=== PATIENT | female | born 1930 | race American Indian/Alaskan Native ===

== ENCOUNTER 2020-09-07 22:12 | Inpatient (IN) | payer MEDICARE, OTHER ==
[2020-09-07 23:35] LABS: Albumin 4.2 g/dL (3.9-5); Calcium 10.6 mg/dL (8.4-10.2)
[2020-09-08 01:36] LABS: Basophils % (Auto) 0.6 % (0.0-1.8); Lymphocytes # (Auto) 1.1 K/mm3 (1.2-5.4); Mean Corpuscular HGB Conc 31 % (30-34); Mean Corpuscular Volume 77 fl (79-97); Monocytes # (Auto) 0.4 K/mm3 (0.0-0.8); Monocytes % (Auto) 11.5 % (0.0-7.3); Platelet Count 150 K/mm3 (140-440); Red Blood Count 5.48 M/mm3 (3.65-5.03); Red Cell Distribution Width 14.7 % (13.2-15.2)
[2020-09-08 01:43] LABS: Hematocrit 42.2 % (30.3-42.9); Hemoglobin 13.1 gm/dl (10.1-14.3)
--- NOTE | 2020-09-08 02:19 | Emergency Department Report ---
HPI - General Chief Complaint: Hyperglycemia Time Seen by Provider: 09/08/20 02:08 - [facility] HPI: Room 2 The patient is an 89-year-old female present with a chief complaint of hyperglycemia. Patient was brought in by son for hyperglycemia. The son states the glucometer at home read "high" and the patient complained of feeling tired. Patient states she had episodes of nausea vomiting for 1 day. Patient denies history of fever dysuria or hematuria but admits to urinary frequency. Patient states she has been compliant with her diabetes medication. ED Past Medical Hx - Past Medical History Previous Medical History?: Yes Hx Congestive Heart Failure: Yes Hx Diabetes: Yes - Surgical History Past Surgical History?: Yes Additional Surgical History: Cardiac stent - Family History Family history: no significant - Social History Smoking Status: Never Smoker Substance Use Type: None ED Review of Systems ROS: Stated complaint: WEAKNESS Other details as noted in HPI Constitutional: denies: fever Eyes: denies: eye pain ENT: denies: throat pain Respiratory: no symptoms reported Cardiovascular: denies: chest pain Endocrine: increased urine Gastrointestinal: nausea, vomiting. denies: abdominal pain Genitourinary: frequency. denies: dysuria, hematuria Musculoskeletal: denies: back pain Neurological: denies: headache Physical Exam - Physical Exam Vital Signs: Vital Signs 09/07/20 09/07/20 22:15 22:17 Temperature 97.5 F L Pulse Rate 78 Respiratory 18 Rate Blood Pressure 185/62 O2 Sat by Pulse 95 Oximetry Physical Exam: GENERAL: The patient is well-developed well-nourished female lying on stretcher not appearing to be in acute distress. [] HEENT: Normocephalic. Atraumatic. Extraocular motions are intact. NECK: Supple. Trachea midline CHEST/LUNGS: Clear to auscultation. There is no respiratory distress noted. HEART/CARDIOVASCULAR: Regular. There is no tachycardia. There is no gallop rub or murmur. ABDOMEN: Abdomen is soft, nontender. Patient has normal bowel sounds. There is no abdominal distention. SKIN: There is no rash. There is no edema. There is no diaphoresis. NEURO: The patient is awake, alert, and oriented. The patient is cooperative. The patient has no focal neurologic deficits. The patient has normal speech MUSCULOSKELETAL: There is no evidence of acute injury. ED Course Vital Signs 09/07/20 09/07/20 22:15 22:17 Temperature 97.5 F L Pulse Rate 78 Respiratory 18 Rate Blood Pressure 185/62 O2 Sat by Pulse 95 Oximetry ED Medical Decision Making - Lab Data Result diagrams: 09/08/20 00:58 09/07/20 22:43 Laboratory Tests 09/07/20 09/08/20 09/08/20 22:43 00:58 00:58 WBC RBC Hgb Hct MCV MCH MCHC RDW Plt Count Lymph % (Auto) [place] % (Auto) Eos % (Auto) Baso % (Auto) Lymph # (Auto) [place] # (Auto) Eos # (Auto) Baso # (Auto) Seg Neutrophils % Seg Neutrophils # VBG pH 7.313 L Sodium 136 L Potassium 4.5 Chloride 90.6 L Carbon Dioxide 27 Anion Gap 23 BUN 38 H Creatinine 2.2 H Estimated GFR 21 BUN/Creatinine Ratio 17 Glucose 713 H* Ketones Quantitative Small Calcium 10.6 H Total Bilirubin 0.40 AST 15 ALT 16 Alkaline Phosphatase 85 Total Protein 8.0 Albumin 4.2 Albumin/Globulin Ratio 1.1 09/08/20 00:58 WBC 3.5 L RBC 5.48 H Hgb 13.1 Hct 42.2 MCV 77 L MCH 24 L MCHC 31 RDW 14.7 Plt Count 150 Lymph % (Auto) 32.0 [place] % (Auto) 11.5 H Eos % (Auto) 1.0 Baso % (Auto) 0.6 Lymph # (Auto) 1.1 L [place] # (Auto) 0.4 Eos # (Auto) 0.0 Baso # (Auto) 0.0 Seg Neutrophils % 54.9 Seg Neutrophils # 1.9 VBG pH Sodium Potassium Chloride Carbon Dioxide Anion Gap BUN Creatinine Estimated GFR BUN/Creatinine Ratio Glucose Ketones Quantitative Calcium Total Bilirubin AST ALT Alkaline Phosphatase Total Protein Albumin Albumin/Globulin Ratio - Differential Diagnosis DKA, hyperglycemia Critical care attestation.: If time is entered above; I have spent that time in minutes in the direct care of this critically ill patient, excluding procedure time. ED Disposition Clinical Impression: DKA (diabetic ketoacidoses), Renal insufficiency Disposition: OP ADMIT IP TO THIS HOSP Is pt being admited?: Yes Does the pt Need Aspirin: No Condition: Fair Instructions: Diabetic Ketoacidosis (ED) Referrals: PRIMARY CARE, [Primary Care Provider] - 3-5 Days Time of Disposition: 02:45 (Hospitalist paged (Dr Garcia))
[2020-09-08] MEDS ORDERED: INSULIN REGULAR, HUMAN 100 UNITS in SODIUM CHLORIDE 0.9% 99 ML IV SCH ×2 (03:00→04:00)
[2020-09-08] MEDS ORDERED: MORPHINE 2 MG/1 ML INJ IV PRN (03:11)
[2020-09-08] MEDS ORDERED: SODIUM CHLORIDE 0.9% 1000 ML 1,000 ML IV ONE (03:17)
--- NOTE | 2020-09-08 03:29 | History and Physical Report ---
History of Present Illness Date of examination: 09/08/20 Date of admission: 09/08/2020 Chief complaint: Elevated Blood Glucose History of present illness: 89-year-old -[place] female with known history of congestive heart failure, and diabetes mellitus presenting in the emergency room today accompanied by son with complaint of elevated blood sugar. Coumadin was said to be reading high at home. Patient denies any fever or chills, no chest pain or shortness of breath, no headache or dizziness, no excessive thirst or increased frequency of urination no hematuria or dysuria. Patient has however had some episodes of nausea and vomiting. She denies any abdominal pain and no diarrhea. Patient indicates that she has been compliant with her medication. She denies any sick contacts and no recent travel. She denies any contact with anyone with COVID-19. Work-up in the emergency room reveals elevated blood glucose in the 700s. She was found to be in DKA and started on IV fluid and insulin drip. Past History Past Medical History: diabetes, heart failure Past Surgical History: No surgical history Social history: no significant social history Family history: no significant family history Medications and Allergies Allergies Allergy/AdvReac Type Severity Reaction Status Date / Time No Known Allergies Allergy Unverified 09/07/20 22:27 Active Meds: Active Medications Heparin Sodium (Porcine) (Heparin) 5,000 unit SUB-Q Q8HR SADI Insulin Human Regular 100 (units/ Sodium Chloride) 100 mls @ 5 mls/hr IV TITR SADI; Protocol Sodium Chloride (Nacl 0.9% 1000 Ml) 1,000 mls @ 999 mls/hr IV BOLUS ONE Stop: 09/08/20 04:17 Insulin Human Regular 100 (units/ Sodium Chloride) 100 mls @ 1 mls/hr IV TITR SADI; Protocol Sodium Chloride (Nacl 0.9% 1000 Ml) 1,000 mls @ 150 mls/hr IV DIRECT SADI Potassium Chloride/Dextrose/Sod Cl (D5w/0.45% Nacl/Kcl 20 Meq) 20 meq in 1,000 mls @ 125 mls/hr IV DIRECT SADI Morphine Sulfate (Morphine) 2 mg IV Q4H PRN PRN Reason: Pain, Moderate (4-6) Sodium Chloride (Sodium Chloride Flush Syringe 10 Ml) 10 ml IV BID SADI Sodium Chloride (Sodium Chloride Flush Syringe 10 Ml) 10 ml IV PRN PRN PRN Reason: LINE FLUSH Review of Systems Constitutional: no fever, no chills Ears, nose, mouth and throat: no nasal congestion, no sore throat Cardiovascular: no chest pain, no palpitations Respiratory: no cough, no shortness of breath Gastrointestinal: nausea, vomiting, no abdominal pain, no diarrhea Genitourinary Female: no flank pain, no dysuria, no hematuria Musculoskeletal: no neck pain, no low back pain Integumentary: rash, pruritis Neurological: no headaches, no confusion Psychiatric: no anxiety, no depression Endocrine: no polyphagia, no polydipsia, no polyuria, no excessive sweating Exam - Constitutional Vitals: Temp Pulse Resp BP Pulse Ox 97.5 F L 78 18 185/62 95 09/07/20 22:15 09/07/20 22:17 09/07/20 22:15 09/07/20 22:15 09/07/20 22:17 General appearance: Present: no acute distress, well-nourished - EENT Eyes: Present: PERRL, EOM intact. Absent: scleral icterus ENT: hearing intact, clear oral mucosa, dentition normal - Neck Neck: Present: supple, normal ROM - Respiratory Respiratory effort: normal Respiratory: bilateral: CTA - Cardiovascular Rhythm: regular Heart Sounds: Present: S1 & S2. Absent: gallop, systolic murmur, diastolic murmur, rub - Extremities Extremities: no ischemia, pulses intact, pulses symmetrical, Full ROM Extremity abnormal: edema (trace bilateral ankle edema) Peripheral Pulses: within normal limits - Abdominal General gastrointestinal: Present: soft, non-tender, non-distended, normal bowel sounds - Integumentary Integumentary: Present: clear, warm, dry - Musculoskeletal Musculoskeletal: strength equal bilaterally - Psychiatric Psychiatric: appropriate mood/affect, intact judgment & insight, memory intact, cooperative - Neurologic Neurologic: CNII-XII intact, no focal deficits, moves all extremities Results - Labs CBC & Chem 7: 09/08/20 00:58 09/08/20 02:59 Labs: Abnormal lab results 09/07/20 09/08/20 09/08/20 Range/Units 22:43 00:58 00:58 WBC 3.5 L (4.5-11.0) K/mm3 RBC 5.48 H (3.65-5.03) M/mm3 MCV 77 L (79-97) fl MCH 24 L (28-32) pg [place] % (Auto) 11.5 H (0.0-7.3) % Lymph # (Auto) 1.1 L (1.2-5.4) K/mm3 VBG pH 7.313 L (7.320-7.420) Sodium 136 L (137-145) mmol/L Chloride 90.6 L (98-107) mmol/L BUN 38 H (7-17) mg/dL Creatinine 2.2 H (0.6-1.2) mg/dL Glucose 713 H* (65-100) mg/dL Calcium 10.6 H (8.4-10.2) mg/dL Assessment and Plan - Patient Problems (1) DKA (diabetic ketoacidoses) Current Visit: Yes Status: Acute Plan to address problem: Patient started on IV fluid and insulin drip. We will monitor her blood glucose closely. (2) Renal insufficiency Current Visit: Yes Status: Acute Plan to address problem: Probably chronic. Will monitor BUN and creatinine. We will place consult to nephrology for further recommendation. (3) DVT prophylaxis Current Visit: Yes Status: Acute Plan to address problem: Patient placed on anticoagulation with subcutaneous heparin. (4) Full code status Current Visit: Yes Status: Acute
[2020-09-08 03:31] LABS: Calcium 10.5 mg/dL (8.4-10.2)
[2020-09-08] MEDS ORDERED: SODIUM CHLORIDE 0.9% 1000 ML 1,000 ML ONE ×2 (04:54→06:03)
[2020-09-08 05:05] LABS: Calcium 10.2 mg/dL (8.4-10.2)
[2020-09-08] MEDS ORDERED: HEPARIN 5,000 UNIT/1 ML VIAL ONE ×2 (06:03→13:56)
[2020-09-08] MEDS: HEPARIN 5,000 UNIT/1 ML VIAL SUB-Q SCH ×3 (06:05→21:59)
[2020-09-08] MEDS: SODIUM CHLORIDE 0.9% 1000 ML 1,000 ML IV SCH (06:06)
[2020-09-08 07:25] LABS: Calcium 9.6 mg/dL (8.4-10.2)
[2020-09-08] MEDS ORDERED: D5W/0.45% NACL/KCL 20 MEQ 20 MEQ/1,000 ML BAG IV ONE ×2 (08:02→16:01)
[2020-09-08] MEDS: D5W/0.45% NACL/KCL 20 MEQ 20 MEQ/1,000 ML BAG IV SCH ×2 (08:15→16:08)
[2020-09-08 09:46] LABS: Calcium 9.7 mg/dL (8.4-10.2)
[2020-09-08 11:03] LABS: Calcium 9.2 mg/dL (8.4-10.2)
--- NOTE | 2020-09-08 15:30 | Consultation ---
History of Present Illness - Reason for Consult Consult date: 09/08/20 acute renal failure, chronic renal failure Requesting physician: ELLA GUZMAN - History of Present Illness 89-year-old lady with a history of diabetes mellitus, congestive heart failure and chronic kidney disease stage not known to me. Patient lives in [place] and is visiting family here in [place]. She was brought to the emergency room because her blood sugar was high. Patient had been feeling tired. She had episodes of nausea and vomiting. She also admits to urinary frequency and comp zarina of pain in her right side. No diarrhea. No chest pain or shortness of breath. No fever or chills. On presentation blood sugar was 713 mg/dL and BUN/creatinine 38/2.2 mg/dL. I am consulted to assist managing the renal failure. Patient admits that she sees a lard maker in [place] where she lives but she does not know what stage of kidney disease she is at. 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 denies: smoking, alcohol abuse, prescription drug abuse, IV drug use Family history: cancer (Father had cancer. She did not sure of what her mother of) Medications and Allergies Allergies Allergy/AdvReac Type Severity Reaction Status Date / Time No Known Allergies Allergy Unverified 09/07/20 22:27 Home Medications Medication Instructions Recorded Confirmed Last Taken Type Apixaban [Eliquis] 5 mg PO BID 09/08/20 09/08/20 Unknown History Furosemide [Lasix TAB] 20 mg PO DAILY 09/08/20 09/08/20 Unknown History amLODIPine 5 mg PO DAILY 09/08/20 09/08/20 Unknown History labetaloL [Labetalol 100mg TAB] 100 mg PO BID 09/08/20 09/08/20 Unknown History Active Meds: Active Medications Heparin Sodium (Porcine) (Heparin) 5,000 unit SUB-Q Q8HR SADI Last Admin: 09/08/20 14:00 Dose: 5,000 unit Documented by: Insulin Human Regular 100 (units/ Sodium Chloride) 100 mls @ 1 mls/hr IV TITR SADI; Protocol Last Titration: 09/08/20 15:05 Dose: 1.5 units/hr, 1.5 mls/hr Documented by: Sodium Chloride (Nacl 0.9% 1000 Ml) 1,000 mls @ 150 mls/hr IV DIRECT SADI Last Infusion: 09/08/20 08:15 Dose: 0 mls/hr Documented by: Potassium Chloride/Dextrose/Sod Cl (D5w/0.45% Nacl/Kcl 20 Meq) 20 meq in 1,000 mls @ 125 mls/hr IV DIRECT SADI Last Admin: 09/08/20 08:15 Dose: 125 mls/hr Documented by: Morphine Sulfate (Morphine) 2 mg IV Q4H PRN PRN Reason: Pain, Moderate (4-6) Sodium Chloride (Sodium Chloride Flush Syringe 10 Ml) 10 ml IV BID SADI Last Admin: 09/08/20 08:00 Dose: 10 ml Documented by: Sodium Chloride (Sodium Chloride Flush Syringe 10 Ml) 10 ml IV PRN PRN PRN Reason: LINE FLUSH Review of Systems All systems: negative (Decreased appetite, urinary frequency as noted in history of present illness) Exam - Vital Signs Vital signs: Vital Signs Temp Resp BP 97.5 F L 18 185/62 09/07/20 22:15 09/07/20 22:15 09/07/20 22:15 - Physical Exam Narrative exam: Frail elderly -[place] female lying in bed in no acute distress HEENT: NCAT, pink oral mucous membrane Neck: Supple, no venous distention CVS: S1S2 RRR with no murmur, rub or gallop Chest: Clear to auscultation Abdomen: Protuberant, soft, nontender, no organomegaly, bowel sounds are present Extremities: No edema, hyperpigmentation in both legs with ischemic changes, decreased dorsalis pedis pulses bilaterally. Skin warm and dry with pigmentary and ischemic changes in both legs. Genitourinary deferred Neuro: Awake, alert no focal deficits Results - Lab Results 09/08/20 00:58 09/08/20 10:32 Most recent lab results Calcium 9.2 mg/dL (8.4-10.2) 09/08/20 10:32 Phosphorus 3.70 mg/dL (2.5-4.5) 09/08/20 02:59 Magnesium 2.80 mg/dL (1.7-2.3) H 09/08/20 02:59 Assessment and Plan - Patient Problems (1) Acute kidney injury Current Visit: Yes Status: Acute Plan to address problem: Acute kidney injury present probably prerenal still respond to volume depletion secondary to osmotic diuresis due to hyperglycemia. Continue volume repletion and follow-up kidney function and electrolytes (2) Type 2 diabetes mellitus with hyperosmolarity without nonketotic hyperglycemic-hyperosmolar coma Current Visit: Yes Status: Acute Plan to address problem: Hyperglycemic hyperosmolar nonketotic state. Blood sugar control by primary attending (3) Chronic kidney disease, unspecified Current Visit: Yes Status: Acute Plan to address problem: Chronic kidney disease presumably secondary to diabetic nephropathy. Baseline kidney function unknown. Request records from lard maker in [place] tomorrow (4) Heart failure of unknown type Current Visit: Yes Status: Acute Plan to address problem: Caution with volume repletion given history of heart failure. Monitor volume status closely
[2020-09-08] MEDS: INSULIN NPH, HUMAN 100 UNIT/1 ML SUB-Q SCH (16:42)
--- NOTE | 2020-09-08 16:54 | Consultation ---
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 denies: smoking, alcohol abuse, prescription drug abuse, IV drug use Family history: cancer (Father had cancer. She did not sure of what her mother of) Medications and Allergies Allergies Allergy/AdvReac Type Severity Reaction Status Date / Time No Known Allergies Allergy Unverified 09/07/20 22:27 Home Medications Medication Instructions Recorded Confirmed Last Taken Type Apixaban [Eliquis] 5 mg PO BID 09/08/20 09/08/20 Unknown History Furosemide [Lasix TAB] 20 mg PO DAILY 09/08/20 09/08/20 Unknown History amLODIPine 5 mg PO DAILY 09/08/20 09/08/20 Unknown History labetaloL [Labetalol 100mg TAB] 100 mg PO BID 09/08/20 09/08/20 Unknown History Active Meds: Active Medications Heparin Sodium (Porcine) (Heparin) 5,000 unit SUB-Q Q8HR SADI Last Admin: 09/08/20 14:00 Dose: 5,000 unit Documented by: Sodium Chloride (Nacl 0.9% 1000 Ml) 1,000 mls @ 150 mls/hr IV DIRECT SADI Last Infusion: 09/08/20 08:15 Dose: 0 mls/hr Documented by: Potassium Chloride/Sodium Chloride (Ns/Kcl 20meq) 20 meq in 1,000 mls @ 75 mls/hr IV DIRECT SADI Insulin Human NPH (Humulin N) 10 unit SUB-Q BIDDIAB SADI Last Admin: 09/08/20 16:42 Dose: Not Given Documented by: Insulin Human Regular (Humulin R) 0 unit SUB-Q ACHS SADI; Protocol Morphine Sulfate (Morphine) 2 mg IV Q4H PRN PRN Reason: Pain, Moderate (4-6) Sodium Chloride (Sodium Chloride Flush Syringe 10 Ml) 10 ml IV BID SADI Last Admin: 09/08/20 08:00 Dose: 10 ml Documented by: Sodium Chloride (Sodium Chloride Flush Syringe 10 Ml) 10 ml IV PRN PRN PRN Reason: LINE FLUSH Physical Examination Vital signs: Vital Signs Temp Resp BP 97.5 F L 18 185/62 09/07/20 22:15 09/07/20 22:15 09/07/20 22:15 Results - Laboratory Findings CBC and BMP: 09/08/20 00:58 09/09/20 05:50 Abnormal lab findings: Abnormal Labs 09/07/20 09/07/20 09/08/20 22:41 22:43 00:58 WBC RBC MCV MCH [place] % (Auto) Lymph # (Auto) VBG pH 7.313 L Sodium 136 L Potassium Chloride 90.6 L Carbon Dioxide BUN 38 H Creatinine 2.2 H Glucose 713 H* POC Glucose > 500 H Hemoglobin A1c Calcium 10.6 H Magnesium 09/08/20 09/08/20 09/08/20 00:58 02:59 02:59 WBC 3.5 L RBC 5.48 H MCV 77 L MCH 24 L [place] % (Auto) 11.5 H Lymph # (Auto) 1.1 L VBG pH Sodium 135 L Potassium Chloride 92.3 L Carbon Dioxide BUN 39 H Creatinine 2.0 H Glucose 638 H* POC Glucose Hemoglobin A1c Calcium 10.5 H Magnesium 2.80 H 09/08/20 09/08/20 09/08/20 04:21 04:21 06:25 WBC RBC MCV MCH [place] % (Auto) Lymph # (Auto) VBG pH Sodium 136 L Potassium Chloride 93.1 L Carbon Dioxide BUN 39 H Creatinine 1.9 H Glucose 596 H* POC Glucose 419 H Hemoglobin A1c 13.4 H Calcium Magnesium 09/08/20 09/08/20 09/08/20 06:50 08:12 08:52 WBC RBC MCV MCH [place] % (Auto) Lymph # (Auto) VBG pH Sodium Potassium 3.1 L D Chloride Carbon Dioxide 21 L D BUN 36 H 37 H Creatinine 1.7 H 1.9 H Glucose 289 H 267 H POC Glucose 233 H Hemoglobin A1c Calcium Magnesium 09/08/20 09/08/20 09/08/20 09:26 10:32 11:15 WBC RBC MCV MCH [place] % (Auto) Lymph # (Auto) VBG pH Sodium Potassium 3.3 L Chloride Carbon Dioxide 32 H D BUN 34 H Creatinine 1.9 H Glucose 238 H POC Glucose 302 H 269 H Hemoglobin A1c Calcium Magnesium 09/08/20 09/08/20 09/08/20 12:19 13:30 14:20 WBC RBC MCV MCH [place] % (Auto) Lymph # (Auto) VBG pH Sodium Potassium Chloride Carbon Dioxide BUN Creatinine Glucose POC Glucose 223 H 172 H 143 H Hemoglobin A1c Calcium Magnesium 09/08/20 15:20 WBC RBC MCV MCH [place] % (Auto) Lymph # (Auto) VBG pH Sodium Potassium Chloride Carbon Dioxide BUN Creatinine Glucose POC Glucose 115 H Hemoglobin A1c Calcium Magnesium
--- NOTE | 2020-09-08 17:52 | Event Note ---
Date: 09/08/20 Patient seen and examined Denies any acute chest pain or difficulty breathing Anion gap close, blood sugar level improved Will DC insulin drip Start on consistent carb diet, long and short acting insulin Monitor BMP Continue IV fluid
[2020-09-08] MEDS ORDERED: NACL 0.9%/KCL 20 MEQ 20 MEQ/1,000 ML BAG IV SCH (18:00)
[2020-09-08 20:08] LABS: Calcium 9.1 mg/dL (8.4-10.2)
[2020-09-08] MEDS: INSULIN REGULAR, HUMAN 100 UNIT/ML 3ML VIAL SUB-Q SCH (21:51)
[2020-09-09] MEDS: SODIUM CHLORIDE 0.9% 1000 ML 1,000 ML IV SCH (00:06)
[2020-09-09] MEDS: HEPARIN 5,000 UNIT/1 ML VIAL SUB-Q SCH ×3 (05:14→23:06)
[2020-09-09 06:38] LABS: Calcium 8.6 mg/dL (8.4-10.2)
[2020-09-09] MEDS: INSULIN NPH, HUMAN 100 UNIT/1 ML SUB-Q SCH ×3 (09:53→18:55)
[2020-09-09] MEDS: INSULIN REGULAR, HUMAN 100 UNIT/ML 3ML VIAL SUB-Q SCH ×4 (09:53→23:07)
--- NOTE | 2020-09-09 10:46 | Progress Note ---
Assessment and Plan - Patient Problems (1) Acute kidney injury Current Visit: Yes Status: Acute Plan to address problem: Acute kidney injury present probably prerenal still respond to volume depletion secondary to osmotic diuresis due to hyperglycemia. Kidney function has improved. Discharge planning by primary attending. Okay to discharge from re nal perspective. Emphasized importance of following up with her primary vest baster that she probably (2) Type 2 diabetes mellitus with hyperosmolarity without nonketotic hyperglycemic-hyperosmolar coma Current Visit: Yes Status: Acute Plan to address problem: Hyperglycemic hyperosmolar nonketotic state. Blood sugar control by primary attending (3) Chronic kidney disease, unspecified Current Visit: Yes Status: Acute Plan to address problem: Chronic kidney disease presumably secondary to diabetic nephropathy. Baseline kidney function unknown. Request records from vest baster in [place] tomorrow (4) Heart failure of unknown type Current Visit: Yes Status: Acute Plan to address problem: Discontinue intravenous fluids. Subjective Date of service: 09/09/20 Principal diagnosis: Acute kidney injury Interval history: Patient seen lying in bed. She has no complaints. Wants to go back home. Objective - Exam Narrative Exam: Frail elderly -[place] female lying in bed in no acute distress HEENT: NCAT, pink oral mucous membrane Neck: Supple, no venous distention CVS: S1S2 RRR with no murmur, rub or gallop Chest: Clear to auscultation Abdomen: Protuberant, soft, nontender, no organomegaly, bowel sounds are present Extremities: No edema, hyperpigmentation in both legs with ischemic changes, decreased dorsalis pedis pulses bilaterally. Skin warm and dry with pigmentary and ischemic changes in both legs. Genitourinary deferred Neuro: Awake, alert no focal deficits - Vital Signs Vital signs: Vital Signs - 12hr 09/08/20 09/09/20 23:25 03:57 Temperature 96.3 F L 97.9 F Pulse Rate 94 H 79 Respiratory 20 16 Rate Blood Pressure 148/84 156/70 O2 Sat by Pulse 76 L 97 Oximetry - Lab 09/08/20 00:58 09/09/20 05:50 Most recent lab results Calcium 8.6 mg/dL (8.4-10.2) 09/09/20 05:50 Phosphorus 3.70 mg/dL (2.5-4.5) 09/08/20 02:59 Magnesium 2.80 mg/dL (1.7-2.3) H 09/08/20 02:59 Medications & Allergies - Medications Allergies/Adverse Reactions: Allergies No Known Allergies Allergy (Unverified 09/07/20 22:27) Home Medications: Home Medications Medication Instructions Recorded Confirmed Last Taken Type Apixaban [Eliquis] 5 mg PO BID 09/08/20 09/08/20 Unknown History Furosemide [Lasix TAB] 20 mg PO DAILY 09/08/20 09/08/20 Unknown History amLODIPine 5 mg PO DAILY 09/08/20 09/08/20 Unknown History labetaloL [Labetalol 100mg TAB] 100 mg PO BID 09/08/20 09/08/20 Unknown History Active Medications: Generic Name Dose Route Start Last Admin Trade Name Freq PRN Reason Stop Dose Admin Heparin Sodium (Porcine) 5,000 unit 09/08/20 06:00 09/09/20 05:14 Heparin SUB-Q 5,000 unit Q8HR SADI Administration Sodium Chloride 1,000 mls @ 150 mls/hr 09/08/20 03:15 09/09/20 00:06 Nacl 0.9% 1000 Ml IV 75 mls/hr DIRECT SADI Administration Potassium Chloride/Sodium Chloride 20 meq in 1,000 mls @ 75 mls/hr 09/08/20 18:00 09/09/20 00:05 Ns/Kcl 20meq IV 75 mls/hr DIRECT SADI Administration Insulin Human NPH 10 unit 09/08/20 17:00 09/09/20 09:53 Humulin N SUB-Q 10 unit BIDDIAB SADI Administration Insulin Human Regular 0 unit 09/08/20 22:00 09/09/20 09:53 Humulin R SUB-Q 4 unit ACHS SADI Administration Protocol Morphine Sulfate 2 mg 09/08/20 03:11 Morphine IV Q4H PRN Pain, Moderate (4-6) Sodium Chloride 10 ml 09/08/20 10:00 09/09/20 09:54 Sodium Chloride Flush Syringe 10 Ml IV 10 ml BID SADI Administration Sodium Chloride 10 ml 09/08/20 03:11 Sodium Chloride Flush Syringe 10 Ml IV PRN PRN LINE FLUSH
--- NOTE | 2020-09-09 14:59 | Progress Note ---
Assessment and Plan -- DKA (diabetic ketoacidoses) Patient started on IV fluid and insulin drip. now off insulin drip We will monitor her blood glucose closely. Started on consistent carb diet, NPH and SSI -- OH, likely vasomotor nephropathy Will monitor BUN and creatinine. consulted to nephrology for further recommendation. cont iv fluid --HTN, monitor BP, as needed hydralazine --HLD, start on statin --Early dementia, supportive care -- h/o DVT, patient takes eliquis at home, will resume --h/o CHF, unknown type, appears compensated -- DVT prophylaxis Patient placed on anticoagulation with subcutaneous heparin. -- Full code status 09/09: cont to adjust insulin dose, monitor BP. order for PT eval, monitor BMP. discussed with daughter by phone Subjective Date of service: 09/09/20 Principal diagnosis: Acute kidney injury Interval history: Patient seen and examined. Medical records and medication list reviewed. No acute event overnight noted by the RN. Patient denies any chest pain or difficulty breathing. Patient is tolerating diet. Discussed plan of care at bedside with patient. Objective - Exam Narrative Exam: GENERAL: well-developed and well-nourished elderly -[place] female sitting on bed appeared to be in no discomfort. HEENT: Normocephalic. Atraumatic. No conjunctival congestion or icterus. Patient has moist mucous membranes. NECK: Supple. Trachea midline. CHEST/LUNGS: Clear to auscultated bilaterally, breathing nonlabored. No wheezes crackles or rhonchi. HEART/CARDIOVASCULAR: Regular in rate and rhythm. S1 and S2 positive. ABDOMEN: Abdomen is soft, nontender. Patient has normal bowel sounds. SKIN: There is no rash. Warm and dry. NEURO: No focal motor deficit. Follows command. MUSCULOSKELETAL: No joint effusion or tenderness. EXTRIMITY: No edema, no cyanosis or clubbing. PSYCH: Cooperative. - Constitutional Vitals: Vital Signs - 12hr 09/09/20 09/09/20 09/09/20 03:57 08:12 10:00 Temperature 97.9 F 97.9 F Pulse Rate 79 80 86 Respiratory 16 20 Rate Blood Pressure 156/70 142/65 O2 Sat by Pulse 97 100 Oximetry - Labs CBC & Chem 7: 09/08/20 00:58 09/10/20 22:32 Labs: Abnormal lab results 09/08/20 09/08/20 09/08/20 Range/Units 15:20 18:34 20:44 Carbon Dioxide 21 L D (22-30) mmol/L BUN 32 H (7-17) mg/dL Creatinine 1.6 H (0.6-1.2) mg/dL Glucose 162 H (65-100) mg/dL POC Glucose 115 H 225 H (70-105) mg/dL 09/09/20 09/09/20 09/09/20 Range/Units 05:50 07:49 11:55 Carbon Dioxide (22-30) mmol/L BUN 23 H (7-17) mg/dL Creatinine 1.3 H (0.6-1.2) mg/dL Glucose 251 H (65-100) mg/dL POC Glucose 291 H 420 H (70-105) mg/dL
[2020-09-09] MEDS ORDERED: SODIUM CHLORIDE 0.9% 1000 ML 1,000 ML IV SCH (15:15)
[2020-09-09 16:32] LABS: Bacteria,Urine 1+ /HPF (Negative); Bilirubin,Urine NEG (Negative); Blood,Urine SM (Negative); Color,Urine Yellow (Yellow); Protein,Urine <15 mg/dL mg/dL (Negative); Urobilinogen,Urine < 2.0 mg/dL (<2.0)
--- NOTE | 2020-09-09 17:42 | Progress Note ---
Assessment and Plan Patient alert, awake. Patient resting on room air. O2 saturation 96%. No complaint of chest pain, shortness of breath or cough. Patient afebrile. No leukocytosis. Patients blood sugur 251. Anion gap 17. - Patient Problems (1) DKA (diabetic ketoacidoses) Current Visit: Yes Status: Acute Plan to address problem: Improving. Blood sugur 251, Anion gap 17. Management as per primary care. (2) Acute kidney injury Current Visit: Yes Status: Acute Plan to address problem: Management as per nephrology. (3) Heart failure of unknown type Current Visit: Yes Status: Acute Plan to address problem: Management as per primary care and cardiology. Subjective Date of service: 09/09/20 Principal diagnosis: Acute kidney injury Interval history: Patient alert, awake. Patient resting on room air. O2 saturation 96%. No complaint of chest pain, shortness of breath or cough. Patient afebrile. No leukocytosis. Patients blood sugur 251. Anion gap 17. Objective Vital Signs - 12hr 09/09/20 09/09/20 08:12 10:00 Temperature 97.9 F Pulse Rate 80 86 Respiratory 20 Rate Blood Pressure 142/65 O2 Sat by Pulse 100 Oximetry Constitutional: no acute distress, alert Eyes: non-icteric ENT: oropharynx moist Neck: supple Effort: normal Ascultation: Bilateral: clear Cardiovascular: regular rate and rhythm Gastrointestinal: normoactive bowel sounds Integumentary: normal Extremities: no cyanosis, no edema Neurologic: normal mental status, non-focal exam, pupils equal and round Psychiatric: mood appropriate CBC and BMP: 09/08/20 00:58 09/09/20 05:50 Abnormal lab findings: Abnormal Labs 09/07/20 09/07/20 09/08/20 22:41 22:43 00:58 WBC RBC MCV MCH [place] % (Auto) Lymph # (Auto) VBG pH 7.313 L Sodium 136 L Potassium Chloride 90.6 L Carbon Dioxide BUN 38 H Creatinine 2.2 H Glucose 713 H* POC Glucose > 500 H Hemoglobin A1c Calcium 10.6 H Magnesium 09/08/20 09/08/20 09/08/20 00:58 02:59 02:59 WBC 3.5 L RBC 5.48 H MCV 77 L MCH 24 L [place] % (Auto) 11.5 H Lymph # (Auto) 1.1 L VBG pH Sodium 135 L Potassium Chloride 92.3 L Carbon Dioxide BUN 39 H Creatinine 2.0 H Glucose 638 H* POC Glucose Hemoglobin A1c Calcium 10.5 H Magnesium 2.80 H 09/08/20 09/08/20 09/08/20 04:21 04:21 06:25 WBC RBC MCV MCH [place] % (Auto) Lymph # (Auto) VBG pH Sodium 136 L Potassium Chloride 93.1 L Carbon Dioxide BUN 39 H Creatinine 1.9 H Glucose 596 H* POC Glucose 419 H Hemoglobin A1c 13.4 H Calcium Magnesium 09/08/20 09/08/20 09/08/20 06:50 08:12 08:52 WBC RBC MCV MCH [place] % (Auto) Lymph # (Auto) VBG pH Sodium Potassium 3.1 L D Chloride Carbon Dioxide 21 L D BUN 36 H 37 H Creatinine 1.7 H 1.9 H Glucose 289 H 267 H POC Glucose 233 H Hemoglobin A1c Calcium Magnesium 09/08/20 09/08/20 09/08/20 09:26 10:32 11:15 WBC RBC MCV MCH [place] % (Auto) Lymph # (Auto) VBG pH Sodium Potassium 3.3 L Chloride Carbon Dioxide 32 H D BUN 34 H Creatinine 1.9 H Glucose 238 H POC Glucose 302 H 269 H Hemoglobin A1c Calcium Magnesium 09/08/20 09/08/20 09/08/20 12:19 13:30 14:20 WBC RBC MCV MCH [place] % (Auto) Lymph # (Auto) VBG pH Sodium Potassium Chloride Carbon Dioxide BUN Creatinine Glucose POC Glucose 223 H 172 H 143 H Hemoglobin A1c Calcium Magnesium 09/08/20 09/08/20 09/08/20 15:20 18:34 20:44 WBC RBC MCV MCH [place] % (Auto) Lymph # (Auto) VBG pH Sodium Potassium Chloride Carbon Dioxide 21 L D BUN 32 H Creatinine 1.6 H Glucose 162 H POC Glucose 115 H 225 H Hemoglobin A1c Calcium Magnesium 09/09/20 09/09/20 09/09/20 05:50 07:49 11:55 WBC RBC MCV MCH [place] % (Auto) Lymph # (Auto) VBG pH Sodium Potassium Chloride Carbon Dioxide BUN 23 H Creatinine 1.3 H Glucose 251 H POC Glucose 291 H 420 H Hemoglobin A1c Calcium Magnesium 09/09/20 15:36 WBC RBC MCV MCH [place] % (Auto) Lymph # (Auto) VBG pH Sodium Potassium Chloride Carbon Dioxide BUN Creatinine Glucose POC Glucose 391 H Hemoglobin A1c Calcium Magnesium
[2020-09-10] MEDS: HEPARIN 5,000 UNIT/1 ML VIAL SUB-Q SCH (05:58)
[2020-09-10] MEDS: INSULIN NPH, HUMAN 100 UNIT/1 ML SUB-Q SCH (10:06)
[2020-09-10] MEDS: INSULIN REGULAR, HUMAN 100 UNIT/ML 3ML VIAL SUB-Q SCH ×4 (10:06→21:42)
[2020-09-10] MEDS ORDERED: INSULIN NPH, HUMAN 100 UNIT/1 ML SUB-Q SCH ×4 (10:15→17:00)
--- NOTE | 2020-09-10 10:59 | Progress Note ---
Assessment and Plan - Patient Problems (1) Acute kidney injury Current Visit: Yes Status: Acute Plan to address problem: Acute kidney injury present probably prerenal still respond to volume depletion secondary to osmotic diuresis due to hyperglycemia. Kidney function has improved. No labs today. Discharge planning by primary attending. Okay to d ischarge from renal perspective. Emphasized importance of following up with her primary receiving team member in [place] (2) Type 2 diabetes mellitus with hyperosmolarity without nonketotic hyp erglycemic-hyperosmolar coma Current Visit: Yes Status: Acute Plan to address problem: Hyperglycemic hyperosmolar nonketotic state. Blood sugar control by primary attending (3) Chronic kidney disease, unspecified Current Visit: Yes Status: Acute Plan to address problem: Chronic kidney disease presumably secondary to diabetic nephropathy. Baseline kidney function unknown. Request records from receiving team member in [place] tomorrow (4) Heart failure of unknown type Current Visit: Yes Status: Acute Plan to address problem: Management by primary team Subjective Date of service: 09/10/20 Principal diagnosis: Acute kidney injury Interval history: Patient seen lying in bed. She has no complaints. She denies any chest pain, shortness of breath, nausea or vomiting. Wants to go home..: "I will feel so much better when I hit the door": Objective - Exam Narrative Exam: Frail elderly -Filipino female lying in bed in no acute distress HEENT: NCAT, pink oral mucous membrane Neck: Supple, no venous distention CVS: S1S2 RRR with no murmur, rub or gallop Chest: Clear to auscultation Abdomen: Protuberant, soft, nontender, no organomegaly, bowel sounds are present Extremities: No edema, hyperpigmentation in both legs with ischemic changes, decreased dorsalis pedis pulses bilaterally. Skin warm and dry with pigmentary and ischemic changes in both legs. Genitourinary deferred Neuro: Awake, alert no focal deficits - Vital Signs Vital signs: Vital Signs - 12hr 09/09/20 09/10/20 09/10/20 23:38 04:24 07:46 Temperature 98.0 F 97.6 F 98.5 F Pulse Rate 83 80 73 Respiratory 20 20 20 Rate Blood Pressure 137/60 156/79 173/70 O2 Sat by Pulse 100 100 95 Oximetry - Lab 09/08/20 00:58 09/09/20 05:50 Most recent lab results Calcium 8.6 mg/dL (8.4-10.2) 09/09/20 05:50 Phosphorus 3.70 mg/dL (2.5-4.5) 09/08/20 02:59 Magnesium 2.80 mg/dL (1.7-2.3) H 09/08/20 02:59 Medications & Allergies - Medications Allergies/Adverse Reactions: Allergies No Known Allergies Allergy (Unverified 09/07/20 22:27) Home Medications: Home Medications Medication Instructions Recorded Confirmed Last Taken Type Apixaban [Eliquis] 5 mg PO BID 09/08/20 09/08/20 Unknown History Furosemide [Lasix TAB] 20 mg PO DAILY 09/08/20 09/08/20 Unknown History amLODIPine 5 mg PO DAILY 09/08/20 09/08/20 Unknown History labetaloL [Labetalol 100mg TAB] 100 mg PO BID 09/08/20 09/08/20 Unknown History Active Medications: Generic Name Dose Route Start Last Admin Trade Name Freq PRN Reason Stop Dose Admin Amlodipine Besylate 5 mg 09/10/20 11:00 Amlodipine PO DAILY SADI Apixaban 5 mg 09/10/20 22:00 Eliquis PO BID SADI Protocol Heparin Sodium (Porcine) 5,000 unit 09/08/20 06:00 09/10/20 05:58 Heparin SUB-Q 5,000 unit Q8HR SADI Administration Sodium Chloride 1,000 mls @ 100 mls/hr 09/09/20 15:15 09/09/20 15:56 Nacl 0.9% 1000 Ml IV 100 mls/hr DIRECT SADI Administration Insulin Human NPH 20 unit 09/10/20 11:00 Humulin N SUB-Q BIDDIAB SADI Insulin Human Regular 0 unit 09/08/20 22:00 09/10/20 10:06 Humulin R SUB-Q Not Given ACHS SADI Protocol Morphine Sulfate 2 mg 09/08/20 03:11 Morphine IV Q4H PRN Pain, Moderate (4-6) Sodium Chloride 10 ml 09/08/20 10:00 09/10/20 10:05 Sodium Chloride Flush Syringe 10 Ml IV 10 ml BID SADI Administration Sodium Chloride 10 ml 09/08/20 03:11 Sodium Chloride Flush Syringe 10 Ml IV PRN PRN LINE FLUSH
--- NOTE | 2020-09-10 11:50 | Progress Note ---
Assessment and Plan Patient alert, awake. Patient resting on room air. O2 saturation 95%. No complaint of chest pain, shortness of breath or cough. Patient afebrile. No leukocytosis. Patients blood sugur 293. Anion gap 17. - Patient Problems (1) DKA (diabetic ketoacidoses) Current Visit: Yes Status: Acute Plan to address problem: Improving. Blood sugur 293, Anion gap 17. Management as per primary care. Chest xray and ABGs tomorrow. (2) Acute kidney injury Current Visit: Yes Status: Acute Plan to address problem: Management as per nephrology. (3) Heart failure of unknown type Current Visit: Yes Status: Acute Plan to address problem: Management as per primary care and cardiology. Subjective Date of service: 09/10/20 Principal diagnosis: Acute kidney injury Interval history: Patient alert, awake. Patient resting on room air. O2 saturation 95%. No complaint of chest pain, shortness of breath or cough. Patient afebrile. No leukocytosis. Patients blood sugur 293. Anion gap 17. Objective Vital Signs - 12hr 09/10/20 09/10/20 04:24 07:46 Temperature 97.6 F 98.5 F Pulse Rate 80 73 Respiratory 20 20 Rate Blood Pressure 156/79 173/70 O2 Sat by Pulse 100 95 Oximetry Constitutional: no acute distress, alert Eyes: non-icteric ENT: oropharynx moist Neck: supple Effort: normal Ascultation: Bilateral: clear Cardiovascular: regular rate and rhythm Gastrointestinal: normoactive bowel sounds Integumentary: normal Extremities: no cyanosis, no edema Neurologic: normal mental status, non-focal exam, pupils equal and round Psychiatric: mood appropriate CBC and BMP: 09/08/20 00:58 09/09/20 05:50 Abnormal lab findings: Abnormal Labs 09/07/20 09/07/20 09/08/20 22:41 22:43 00:58 WBC RBC MCV MCH [place] % (Auto) Lymph # (Auto) VBG pH 7.313 L Sodium 136 L Potassium Chloride 90.6 L Carbon Dioxide BUN 38 H Creatinine 2.2 H Glucose 713 H* POC Glucose > 500 H Hemoglobin A1c Calcium 10.6 H Magnesium 09/08/20 09/08/20 09/08/20 00:58 02:59 02:59 WBC 3.5 L RBC 5.48 H MCV 77 L MCH 24 L [place] % (Auto) 11.5 H Lymph # (Auto) 1.1 L VBG pH Sodium 135 L Potassium Chloride 92.3 L Carbon Dioxide BUN 39 H Creatinine 2.0 H Glucose 638 H* POC Glucose Hemoglobin A1c Calcium 10.5 H Magnesium 2.80 H 09/08/20 09/08/20 09/08/20 04:21 04:21 06:25 WBC RBC MCV MCH [place] % (Auto) Lymph # (Auto) VBG pH Sodium 136 L Potassium Chloride 93.1 L Carbon Dioxide BUN 39 H Creatinine 1.9 H Glucose 596 H* POC Glucose 419 H Hemoglobin A1c 13.4 H Calcium Magnesium 09/08/20 09/08/20 09/08/20 06:50 08:12 08:52 WBC RBC MCV MCH [place] % (Auto) Lymph # (Auto) VBG pH Sodium Potassium 3.1 L D Chloride Carbon Dioxide 21 L D BUN 36 H 37 H Creatinine 1.7 H 1.9 H Glucose 289 H 267 H POC Glucose 233 H Hemoglobin A1c Calcium Magnesium 09/08/20 09/08/20 09/08/20 09:26 10:32 11:15 WBC RBC MCV MCH [place] % (Auto) Lymph # (Auto) VBG pH Sodium Potassium 3.3 L Chloride Carbon Dioxide 32 H D BUN 34 H Creatinine 1.9 H Glucose 238 H POC Glucose 302 H 269 H Hemoglobin A1c Calcium Magnesium 09/08/20 09/08/20 09/08/20 12:19 13:30 14:20 WBC RBC MCV MCH [place] % (Auto) Lymph # (Auto) VBG pH Sodium Potassium Chloride Carbon Dioxide BUN Creatinine Glucose POC Glucose 223 H 172 H 143 H Hemoglobin A1c Calcium Magnesium 09/08/20 09/08/20 09/08/20 15:20 18:34 20:44 WBC RBC MCV MCH [place] % (Auto) Lymph # (Auto) VBG pH Sodium Potassium Chloride Carbon Dioxide 21 L D BUN 32 H Creatinine 1.6 H Glucose 162 H POC Glucose 115 H 225 H Hemoglobin A1c Calcium Magnesium 09/09/20 09/09/20 09/09/20 05:50 07:49 11:55 WBC RBC MCV MCH [place] % (Auto) Lymph # (Auto) VBG pH Sodium Potassium Chloride Carbon Dioxide BUN 23 H Creatinine 1.3 H Glucose 251 H POC Glucose 291 H 420 H Hemoglobin A1c Calcium Magnesium 09/09/20 09/09/20 15:36 22:11 WBC RBC MCV MCH [place] % (Auto) Lymph # (Auto) VBG pH Sodium Potassium Chloride Carbon Dioxide BUN Creatinine Glucose POC Glucose 391 H 217 H Hemoglobin A1c Calcium Magnesium
[2020-09-10] MEDS: amLODIPine 5 MG TAB PO SCH (11:58)
--- NOTE | 2020-09-10 12:24 | Consultation ---
PULMONARY CRITICAL CARE CONSULT NOTE CONSULTING PHYSICIAN: Dr. Jessee Garcia. REASON FOR CONSULTATION: Diabetic ketoacidosis, on IV insulin therapy. CHIEF COMPLAINT AND HISTORY OF PRESENT ILLNESS: As follows: The patient is a now 89-year-old -[place] female with past medical history significant amongst other things for a diagnosis of diabetes as well as congestive heart failure, who apparently came from home, brought in by her son due to elevated blood sugars. She had denied any fevers or chills. She denied chest pain, shortness of breath. She denied any new wounds or open sores or boils on her body. She states she had been taking a medication given by her family members. She had episodes of nausea and vomiting. She denied abdominal pain. She denied diarrhea. In the Emergency Room, she was found to have blood sugars in the 700s. She was found to be in DKA and started on IV insulin drip and the DKA protocol. When I stopped by to see her, she was resting in bed, somnolent, is the best way to describe her. She denied again any of the symptoms mentioned above, no longer due to what she had been any nausea and again denied abdominal pain. She remained on IV insulin drip at that time, I believe at about 5 units per hour. She denies any history of tobacco use or abuse whatsoever. This really is as much of the history of presentation as I have. PAST MEDICAL HISTORY: Diabetes, congestive heart failure, hypertension. PAST SURGICAL HISTORY: Unknown. MEDICATIONS: She was on at the time I stopped by to see were reviewed, pertinent medications include the following: She was on heparin 5000 units subQ q.8 hours. She was on IV NS with 20 mEq of KCl per liter at 75 mL per hour. Her insulin drip has been going, I think, at 2 units per hour. Also about to begin insulin via sliding scale, morphine 2 mg IV q.4 hours p.r.n. moderate pain. ALLERGIES: No known drug allergies. DIET: Thin lady, denied acute weight loss or gain in the preceding few weeks to months. FAMILY AND SOCIAL HISTORY: Lives in the community. Denies alcohol, tobacco, or illicit drug use or abuse. Family history is otherwise, unknown, difficult to obtain. REVIEW OF SYSTEMS: Difficult to obtain secondary this patient's medical and mental condition and a probable element of mild dementia. Since she has been here, no gross hematochezia or melena. No gross hematuria. She denies dysuria. No hematemesis. No hemoptysis. She denies chest pain. Complete 13-system review of systems was obtained as best as I could. Pertinent positives and/or negatives as in of the body of history above, otherwise noncontributory. Of note, she has also had no seizure activity. PHYSICAL EXAMINATION: VITAL SIGNS: At presentation, she was afebrile, temperature 97.5 degrees Fahrenheit, pulse of 78, respiratory rate of 18, blood pressure 185/62; O2 95%, so at the time I saw her, she was on room air. GENERAL: She is an elderly looking female, looks her stated age, normocephalic, atraumatic, talking to me in complete sentences without significantly increased respiratory effort at rest. HEAD, EYES, EARS, NOSE AND THROAT: Anicteric. No conjunctival erythema. Oropharynx was moist. Mallampati #2 oropharynx. No gross jugular venous distention, no thyromegaly. NECK: Grossly, there were no palpable lymph nodes in the supraclavicular or submandibular lymph node chains. LUNGS: Auscultation of both lung zarate unremarkable except for slightly diminished bilateral breath sounds, lungs were clear bilaterally with good bilateral air movement. HEART: Heart sounds 1 and 2 are heard. They were regular in rate and rhythm at the time of my evaluation without overt rubs or murmurs. ABDOMEN: Soft, full, bowel sounds are positive, nontender, no palpable hepatosplenomegaly. Nontender. EXTREMITIES: Without overt digital clubbing or cyanosis. Trace pedal edema. Pedal pulses are 2+ bilaterally. NEUROLOGIC: Pupils are equal, round, about 4 mm, reactive to light. Extraocular muscle movements are intact. She moves all extremities spontaneously. SKIN: Was of poor turgor. In particular on the lower extremities, she had chronic stasis dermatitis type rash, but without overt cellulitis or rash in the areas examined; please see the wound care nurse's note for full description of her skin. NEUROLOGICAL: Pupils are equal, round, about 4 mm, reactive to light. Extraocular muscle movements were intact. She moves all 4 extremities spontaneously. She was a little bit somnolent. PSYCHIATRIC: Mood and affect were flat. She had relatively intact judgment and insight. LABORATORY DATA: From my review are as follows: Admission white cell count was 3500, hemoglobin 13.1, hematocrit 42.2, platelet count 150. No manual differential. Serum sodium was 136, potassium 4.5, chloride 91, bicarbonate 27, BUN 38, creatinine 2.2, glucose 713, calcium was 10.6. Liver function tests otherwise within normal limits. Small ketones. Venous blood gas showed a pH of 7.31. No blood cultures for my review. No radiographic studies for my review. ASSESSMENT: 1. Diabetic ketoacidosis. 2. History of congestive heart failure. 3. Mild metabolic acidosis. 4. History of diabetes. 5. Leukopenia. 6. Hypercalcemia. PLAN: Continue DKA protocol. Again, she is about to transition off IV insulin therapy, sliding scale insulin therapy will be started. Target blood glucose less than 180 mg/dL. PRN oxygen to keep sats greater than or equal to about 90%. Electrolytes should still be followed and corrected as necessary. At this point, conservative volume management strategies to avoid pulmonary edema in light of the congestive heart failure. Chronic disease medications should be reintroduced by her family. Of note, she does have an acute kidney injury, possibly on chronic. Hopefully, this is improved with volume resuscitation. Nephrology evaluation will be at the behest of the attending physician. She will be placed on GI prophylaxis as well as DVT prophylaxis while she states she is appropriately on DVT prophylaxis. Flu and pneumonia vaccination will be addressed per protocol. She is transitioning off IV insulin and can be downgraded to the regular floor, perhaps to telemetry floor, considering her age and congestive heart failure history. Thank you very much for the consult. We will follow along and make further recommendations as picture progresses/becomes clearer. JOB# [id number] KOMAL/RASTA
--- NOTE | 2020-09-10 14:32 | Discharge Summary ---
Providers - Providers Date of Admission: 09/08/20 02:58 Date of discharge: 09/11/20 Attending physician: PRERNA SNYDER 09/08/20 03:12 Consult to Dietitian/Nutrition [CONS] Routine Physician Instructions: Reason For Exam: Reason for Consult: Diet education Consult to Physician [CONS] Routine Comment: Consulting Provider: MERCED SPENCE Physician Instructions: Reason For Exam: DKA- ON INSULIN DRIP 09/08/20 04:24 Consult to Physician [CONS] Routine Comment: Consulting Provider: PEDRO SAM Physician Instructions: Reason For Exam: RENAL fAILURE 09/09/20 15:00 Physical Therapy Evaluation and Treat [CONS] Routine Comment: Reason For Exam: placement Primary care physician: MECHANIC Hospitalization Condition: Fair Hospital course: Discharge diagnosis: -- DKA (diabetic ketoacidoses) Patient started on IV fluid and insulin drip. now off insulin drip We will monitor her blood glucose closely. Started on consistent carb diet, NPH and SSI -- OH, likely vasomotor nephropathy Will monitor BUN and creatinine. consulted to nephrology for further recommendation. cont iv fluid --HTN, monitor BP, as needed hydralazine --HLD, start on statin --Early dementia, supportive care -- h/o DVT, patient takes eliquis at home, will resume --h/o CHF, unknown type, appears compensated -- DVT prophylaxis Patient placed on anticoagulation with subcutaneous heparin. -- Full code status Disposition: [id number] HOME UNDER HOME [facility] Time spent for discharge: 34 minutes Core Measure Documentation - Palliative Care Palliative Care/ Comfort Measures: Not Applicable - Core Measures Any of the following diagnoses?: none Exam - Constitutional Vitals: Temp Pulse Resp BP Pulse Ox 98.5 F 73 20 174/81 95 09/10/20 07:46 09/10/20 11:58 09/10/20 07:46 09/10/20 12:11 09/10/20 07:46 Plan Activity: fall precautions Weight Bearing Status: Non-Weight Bearing Diet: diabetic Special Instructions: record blood sugar diary (please check BG before meal and bedtime) Follow up with: PRIMARY CARE, [Primary Care Provider] - 3-5 Days Prescriptions: Insulin Regular, Human [HumuLIN R] See Protocol SUB-Q ACHS #1 vial labetaloL [Labetalol 100mg TAB] 100 mg PO BID #60 tablet Insulin NPH, Human [NovoLIN N] 25 unit SUB-Q QAMDIAB 30 Days #10 ml Insulin NPH, Human [NovoLIN N] 20 unit SUB-Q QPMDIAB 30 Days #10 ml
[2020-09-10 14:41] LABS: Calcium 8.2 mg/dL (8.4-10.2)
--- NOTE | 2020-09-10 17:00 | XRay Report ---
CHEST 1 VIEW INDICATION / CLINICAL INFORMATION: Heart failure. COMPARISON: None available. FINDINGS: SUPPORT DEVICES: None. HEART / MEDIASTINUM: Minimally enlarged cardiac silhouette. LUNGS / PLEURA: No significant pulmonary or pleural abnormality. No pneumothorax. ADDITIONAL FINDINGS: No significant additional findings. IMPRESSION: 1. Minimally enlarged cardiac silhouette. 2. No evidence of confluent infiltrates. Signer Name: Mir Christian MD Signed: 09/10/2020 4:56 PM Workstation Name: [id number]
[2020-09-10] MEDS: APIXABAN 5 MG TAB PO SCH (21:41)
[2020-09-11] MEDS ORDERED: INSULIN NPH, HUMAN 100 UNIT/1 ML SUB-Q SCH ×4 (08:00→17:00)
[2020-09-11] MEDS ORDERED: INSULIN GLARGINE 100 UNITS/ML SUB-Q SCH (08:00)
[2020-09-11] MEDS: amLODIPine 5 MG TAB PO SCH (09:28)
[2020-09-11] MEDS: INSULIN REGULAR, HUMAN 100 UNIT/ML 3ML VIAL SUB-Q SCH ×2 (09:28→12:05)
[2020-09-11] MEDS: APIXABAN 5 MG TAB PO SCH (09:28)
[2020-09-11 09:43] VITALS: BP 156/72
--- NOTE | 2020-09-11 10:41 | Progress Note ---
Assessment and Plan - Patient Problems (1) Acute kidney injury Current Visit: Yes Status: Acute Plan to address problem: Acute kidney injury present probably prerenal still respond to volume depletion secondary to osmotic diuresis due to hyperglycemia. Kidney function has improved. No labs today. Discharge planning by primary attending. Okay to d ischarge from renal perspective. Emphasized importance of following up with her primary back shoe operator in [place] (2) Type 2 diabetes mellitus with hyperosmolarity without nonketotic hyp erglycemic-hyperosmolar coma Current Visit: Yes Status: Acute Plan to address problem: Hyperglycemic hyperosmolar nonketotic state. Blood sugar control by primary attending (3) Chronic kidney disease, unspecified Current Visit: Yes Status: Acute Plan to address problem: Chronic kidney disease presumably secondary to diabetic nephropathy. Baseline kidney function unknown. Request records from back shoe operator in [place] tomorrow (4) Heart failure of unknown type Current Visit: Yes Status: Acute Plan to address problem: Management by primary team Subjective Date of service: 09/11/20 Principal diagnosis: Acute kidney injury Interval history: Patient seen lying in bed. She has no complaints. She denies any chest pain, shortness of breath, nausea or vomiting. Wants to go home Objective - Exam Narrative Exam: Frail elderly -Surinamese female lying in bed in no acute distress HEENT: NCAT, pink oral mucous membrane Neck: Supple, no venous distention CVS: S1S2 RRR with no murmur, rub or gallop Chest: Clear to auscultation Abdomen: Protuberant, soft, nontender, no organomegaly, bowel sounds are present Extremities: No edema, hyperpigmentation in both legs with ischemic changes, decreased dorsalis pedis pulses bilaterally. Skin warm and dry with pigmentary and ischemic changes in both legs. Genitourinary deferred Neuro: Awake, alert no focal deficits - Vital Signs Vital signs: Vital Signs - 12hr 09/10/20 09/11/20 09/11/20 23:37 03:51 07:34 Temperature 98.4 F 98.3 F 98.3 F Pulse Rate 65 68 71 Respiratory 18 16 18 Rate Blood Pressure 115/47 131/48 156/72 O2 Sat by Pulse 100 100 100 Oximetry - Lab 09/08/20 00:58 09/10/20 22:32 Most recent lab results Calcium 8.2 mg/dL (8.4-10.2) L 09/10/20 13:57 Phosphorus 3.70 mg/dL (2.5-4.5) 09/08/20 02:59 Magnesium 2.80 mg/dL (1.7-2.3) H 09/08/20 02:59 Medications & Allergies - Medications Allergies/Adverse Reactions: Allergies No Known Allergies Allergy (Unverified 09/07/20 22:27) Home Medications: Home Medications Medication Instructions Recorded Confirmed Last Taken Type Apixaban [Eliquis] 5 mg PO BID 09/08/20 09/08/20 Unknown History amLODIPine 5 mg PO DAILY 09/08/20 09/08/20 Unknown History Insulin NPH, Human [NovoLIN N] 20 unit SUB-Q QPMDIAB 30 Days #10 09/10/20 Unknown Rx ml Insulin NPH, Human [NovoLIN N] 25 unit SUB-Q QAMDIAB 30 Days #10 09/10/20 Unknown Rx ml Insulin Regular, Human [HumuLIN R] See Protocol SUB-Q ACHS #1 vial 09/10/20 Unknown Rx labetaloL [Labetalol 100mg TAB] 100 mg PO BID #60 tablet 09/10/20 Unknown Rx Active Medications: Generic Name Dose Route Start Last Admin Trade Name Freq PRN Reason Stop Dose Admin Amlodipine Besylate 5 mg 09/10/20 11:00 09/11/20 09:28 Amlodipine PO 5 mg DAILY SADI Administration Apixaban 5 mg 09/10/20 22:00 09/11/20 09:28 Eliquis PO 5 mg BID SADI Administration Protocol Insulin Glargine 35 units 09/11/20 08:00 Lantus SUB-Q QAMDIAB SADI Insulin Human NPH 35 unit 09/11/20 08:00 09/11/20 09:27 Humulin N SUB-Q 35 unit QAMDIAB SADI Administration Insulin Human NPH 25 unit 09/11/20 08:21 Humulin N SUB-Q QPMDIAB SADI Insulin Human Regular 0 unit 09/08/20 22:00 09/11/20 09:28 Humulin R SUB-Q 2 unit ACHS SADI Administration Protocol Labetalol HCl 100 mg 09/10/20 15:00 09/11/20 09:28 Labetalol PO 100 mg BID SADI Administration Morphine Sulfate 2 mg 09/08/20 03:11 Morphine IV Q4H PRN Pain, Moderate (4-6) Sodium Chloride 10 ml 09/08/20 10:00 09/11/20 09:29 Sodium Chloride Flush Syringe 10 Ml IV 10 ml BID SADI Administration Sodium Chloride 10 ml 09/08/20 03:11 Sodium Chloride Flush Syringe 10 Ml IV PRN PRN LINE FLUSH
--- NOTE | 2020-09-11 12:03 | Progress Note ---
Assessment and Plan -- DKA (diabetic ketoacidoses) Patient started on IV fluid and insulin drip. now off insulin drip We will monitor her blood glucose closely. Started on consistent carb diet, NPH and SSI -- OH, likely vasomotor nephropathy Will monitor BUN and creatinine. consulted to nephrology for further recommendation. cont iv fluid --HTN, monitor BP, as needed hydralazine --HLD, start on statin --Early dementia, supportive care -- h/o DVT, patient takes eliquis at home, will resume --h/o CHF, unknown type, appears compensated -- DVT prophylaxis Patient placed on anticoagulation with subcutaneous heparin. -- Full code status 09/09: cont to adjust insulin dose, monitor BP. order for PT eval, monitor BMP. discussed with daughter by phone 09/10: Patient missed her morning insulin dose as her blood glucose was at 80s. In the afternoon blood glucose increased ~400s. Will further adjust long-acting insulin, if blood glucose less than 250 after meal, will DC home with outpatient follow-up Subjective Date of service: 09/11/20 Principal diagnosis: Acute kidney injury Interval history: Patient seen and examined. Medical records and medication list reviewed. No acute event overnight noted by the RN. Patient denies any chest pain or difficulty breathing. Patient is tolerating diet. Discussed plan of care at bedside with patient. Patient did not receive morning insulin dose, blood glucose in the afternoon increased greater than 400 Objective - Exam Narrative Exam: GENERAL: well-developed and well-nourished elderly -Cypriot female sitting on bed appeared to be in no discomfort. HEENT: Normocephalic. Atraumatic. No conjunctival congestion or icterus. Patient has moist mucous membranes. NECK: Supple. Trachea midline. CHEST/LUNGS: Clear to auscultated bilaterally, breathing nonlabored. No wheezes crackles or rhonchi. HEART/CARDIOVASCULAR: Regular in rate and rhythm. S1 and S2 positive. ABDOMEN: Abdomen is soft, nontender. Patient has normal bowel sounds. SKIN: There is no rash. Warm and dry. NEURO: No focal motor deficit. Follows command. MUSCULOSKELETAL: No joint effusion or tenderness. EXTRIMITY: No edema, no cyanosis or clubbing. PSYCH: Cooperative. - Constitutional Vitals: Vital Signs - 12hr 09/11/20 09/11/20 03:51 07:34 Temperature 98.3 F 98.3 F Pulse Rate 68 71 Respiratory 16 18 Rate Blood Pressure 131/48 156/72 O2 Sat by Pulse 100 100 Oximetry - Labs CBC & Chem 7: 09/08/20 00:58 09/10/20 22:32 Labs: Abnormal lab results 09/10/20 09/10/20 09/10/20 Range/Units 12:24 13:57 17:00 Sodium 134 L (137-145) mmol/L BUN 18 H (7-17) mg/dL Glucose 417 H (65-100) mg/dL POC Glucose 293 H 434 H (70-105) mg/dL Calcium 8.2 L (8.4-10.2) mg/dL 09/10/20 09/10/20 09/11/20 Range/Units 21:41 22:32 08:14 Sodium (137-145) mmol/L BUN (7-17) mg/dL Glucose 358 H (65-100) mg/dL POC Glucose > 500 H 159 H (70-105) mg/dL Calcium (8.4-10.2) mg/dL
--- NOTE | 2020-09-11 15:39 | Progress Note ---
Assessment and Plan Patient alert, awake. Patient resting on room air. O2 saturation 95%. No complaint of chest pain, shortness of breath or cough. Patient afebrile. No leukocytosis. Patients blood sugur 293. Anion gap 17. - Patient Problems (1) DKA (diabetic ketoacidoses) Current Visit: Yes Status: Acute Plan to address problem: Improving. Blood sugur 293, Anion gap 17. Management as per primary care. Chest xray and ABGs tomorrow. (2) Acute kidney injury Current Visit: Yes Status: Acute Plan to address problem: Management as per nephrology. (3) Heart failure of unknown type Current Visit: Yes Status: Acute Plan to address problem: Management as per primary care and cardiology. Subjective Date of service: 09/11/20 Principal diagnosis: Acute kidney injury Interval history: Patient alert, awake. Patient resting on room air. O2 saturation 95%. No complaint of chest pain, shortness of breath or cough. Patient afebrile. No leukocytosis. Patients blood sugur 293. Anion gap 17. Objective Vital Signs - 12hr 09/11/20 09/11/20 03:51 07:34 Temperature 98.3 F 98.3 F Pulse Rate 68 71 Respiratory 16 18 Rate Blood Pressure 131/48 156/72 O2 Sat by Pulse 100 100 Oximetry Constitutional: no acute distress, alert Eyes: non-icteric ENT: oropharynx moist Neck: supple Effort: normal Ascultation: Bilateral: clear Cardiovascular: regular rate and rhythm Gastrointestinal: normoactive bowel sounds Integumentary: normal Extremities: no cyanosis, no edema Neurologic: normal mental status, non-focal exam, pupils equal and round Psychiatric: mood appropriate CBC and BMP: 09/08/20 00:58 09/10/20 22:32 Abnormal lab findings: Abnormal Labs 09/07/20 09/07/20 09/08/20 22:41 22:43 00:58 WBC RBC MCV MCH [place] % (Auto) Lymph # (Auto) VBG pH 7.313 L Sodium 136 L Potassium Chloride 90.6 L Carbon Dioxide BUN 38 H Creatinine 2.2 H Glucose 713 H* POC Glucose > 500 H Hemoglobin A1c Calcium 10.6 H Magnesium 09/08/20 09/08/20 09/08/20 00:58 02:59 02:59 WBC 3.5 L RBC 5.48 H MCV 77 L MCH 24 L Baldwin % (Auto) 11.5 H Lymph # (Auto) 1.1 L VBG pH Sodium 135 L Potassium Chloride 92.3 L Carbon Dioxide BUN 39 H Creatinine 2.0 H Glucose 638 H* POC Glucose Hemoglobin A1c Calcium 10.5 H Magnesium 2.80 H 09/08/20 09/08/20 09/08/20 04:21 04:21 06:25 WBC RBC MCV MCH [place] % (Auto) Lymph # (Auto) VBG pH Sodium 136 L Potassium Chloride 93.1 L Carbon Dioxide BUN 39 H Creatinine 1.9 H Glucose 596 H* POC Glucose 419 H Hemoglobin A1c 13.4 H Calcium Magnesium 09/08/20 09/08/20 09/08/20 06:50 08:12 08:52 WBC RBC MCV MCH [place] % (Auto) Lymph # (Auto) VBG pH Sodium Potassium 3.1 L D Chloride Carbon Dioxide 21 L D BUN 36 H 37 H Creatinine 1.7 H 1.9 H Glucose 289 H 267 H POC Glucose 233 H Hemoglobin A1c Calcium Magnesium 09/08/20 09/08/20 09/08/20 09:26 10:32 11:15 WBC RBC MCV MCH [place] % (Auto) Lymph # (Auto) VBG pH Sodium Potassium 3.3 L Chloride Carbon Dioxide 32 H D BUN 34 H Creatinine 1.9 H Glucose 238 H POC Glucose 302 H 269 H Hemoglobin A1c Calcium Magnesium 09/08/20 09/08/20 09/08/20 12:19 13:30 14:20 WBC RBC MCV MCH [place] % (Auto) Lymph # (Auto) VBG pH Sodium Potassium Chloride Carbon Dioxide BUN Creatinine Glucose POC Glucose 223 H 172 H 143 H Hemoglobin A1c Calcium Magnesium 09/08/20 09/08/20 09/08/20 15:20 18:34 20:44 WBC RBC MCV MCH [place] % (Auto) Lymph # (Auto) VBG pH Sodium Potassium Chloride Carbon Dioxide 21 L D BUN 32 H Creatinine 1.6 H Glucose 162 H POC Glucose 115 H 225 H Hemoglobin A1c Calcium Magnesium 09/09/20 09/09/20 09/09/20 05:50 07:49 11:55 WBC RBC MCV MCH [place] % (Auto) Lymph # (Auto) VBG pH Sodium Potassium Chloride Carbon Dioxide BUN 23 H Creatinine 1.3 H Glucose 251 H POC Glucose 291 H 420 H Hemoglobin A1c Calcium Magnesium 09/09/20 09/09/20 09/10/20 15:36 22:11 12:24 WBC RBC MCV MCH [place] % (Auto) Lymph # (Auto) VBG pH Sodium Potassium Chloride Carbon Dioxide BUN Creatinine Glucose POC Glucose 391 H 217 H 293 H Hemoglobin A1c Calcium Magnesium 09/10/20 09/10/20 09/10/20 13:57 17:00 21:41 WBC RBC MCV MCH [place] % (Auto) Lymph # (Auto) VBG pH Sodium 134 L Potassium Chloride Carbon Dioxide BUN 18 H Creatinine Glucose 417 H POC Glucose 434 H > 500 H Hemoglobin A1c Calcium 8.2 L Magnesium 09/10/20 09/11/20 09/11/20 22:32 08:14 12:01 WBC RBC MCV MCH [place] % (Auto) Lymph # (Auto) VBG pH Sodium Potassium Chloride Carbon Dioxide BUN Creatinine Glucose 358 H POC Glucose 159 H 256 H Hemoglobin A1c Calcium Magnesium
== END 2020-09-11 15:40 | disposition home health service (06) | DRG 637 ==
LOC: ED 22:12 → CC1 09-08 02:58 → 4A 09-08 16:45
PROVIDERS: ADMIT Internal Medicine Geriatric Medicine; ATTEND Internal Medicine
DX: E11.10 Type 2 diabetes mellitus with ketoacidosis without coma (principal); N17.0 Acute kidney failure with tubular necrosis; E87.6 Hypokalemia; I50.9 Heart failure, unspecified; E83.52 Hypercalcemia; D72.819 Decreased white blood cell count, unspecified; E11.65 Type 2 diabetes mellitus with hyperglycemia; N18.9 Chronic kidney disease, unspecified; Z79.899 Other long term (current) drug therapy; Z79.4 Long term (current) use of insulin; Z79.01 Long term (current) use of anticoagulants; Z79.891 Long term (current) use of opiate analgesic; Z95.5 Presence of coronary angioplasty implant and graft; Z80.9 Family history of malignant neoplasm, unspecified; Z86.718 Personal history of other venous thrombosis and embolism
CPT/HCPCS: 36415; 71045; 80048; 80053; 81001; 82010; 82805; 82947; 82962; 83036; 83735; 84100; 85025; 96374; 96375; G0378; J1644; J1815; J7030